=== PATIENT | male | born 1990 | race African-American/Black ===

== ENCOUNTER 2017-11-16 15:49 | Observation (INO) ==
[2017-11-16 16:31] LABS: Apearance,Urine CLEAR (Clear); Bilirubin,Urine Negative (Negative); Blood, Urine Small mg/dL (Negative); Glucose,Urine (UA) >=500 mg/dL (Negative); Ketones,Urine 20 mg/dL (Negative); Nitrite,Urine Negative (Negative); Protein,Urine Negative; Urine Color Straw (Yellow); Urine Urobilinogen < 2.0 EU/DL (0.2-1.0); WBC,Urine <1 /HPF (0-6)
[2017-11-16] MEDS ORDERED: ACETAMINOPHEN 325 MG TABLET PO ONE (16:41)
[2017-11-16] MEDS ORDERED: SODIUM CHLORIDE 0.9% 1,000 ML IV STA (17:00)
[2017-11-16 17:14] LABS: Basophils # 0.1 10*3/uL (0.0-0.2); Basophils % 0.7 % (0.0-0.8); Eosinophils # 0.1 10*3/uL (0.0-0.87); Hematocrit 48.1 VOL% (42.0-52.0); Hemoglobin 16.9 GM/DL (14.0-18.0); Immature Granulocytes % 0.3 %; Immature Granulocytes Absolute 0.03 #; Lymphocytes # 2.9 10*3/uL (1.4-4.0); Lymphocytes % 29.8 % (21.2-54.2); Mean Corpuscular HGB Conc 35.1 GM/DL (32-36); Mean Corpuscular Hemoglobin 28 PG (27-34); Mean Corpuscular Volume 79.6 FL (87-102); Mean Platelet Volume 11.4 FL (9.6-12.0); Monocytes # 0.5 10*3/uL (0.11-0.8); Monocytes % 5.4 % (1.7-12.7); Neutrophils # 6.1 10*3/uL (1.4-7.4); Neutrophils % 62.8 % (38.7-73.9); Platelet Count 261 T/CUMM (130-400); Red Blood Count 6.04 MC/CUMM (3.8-5.5); Red Cell Distribution Width 12.9 % (9.3-17.3); White Blood Count 9.7 T/CUMM (4-12)
[2017-11-16 17:33] LABS: Albumin 4.7 G/DL (3.4-5.0); Bilirubin,Total 0.6 MG/DL (0.2-1.0); Calcium 10.5 MG/DL (8.5-10.1); Osmolality,Calculated 285.7 MOS/KG (273-304); Potassium 3.8 MMOL/L (3.5-5.1)
[2017-11-16 17:35] LABS: ABG Base Excess -1.6 MMOL/L (-2.5-2.5); ABG Oxygen Saturation 95.5 % (95-100); ABG PCO2 35.2 MM HG (35-48); ABG PO2 78.3 MM HG (80-95); ABG TCO2 18.6 MMOL/L (23-27)
[2017-11-16] MEDS ORDERED: INSULIN REGULAR 100 UNIT/ML IV STA (17:37)
[2017-11-16] MEDS ORDERED: INSULIN REGULAR 100 UNIT/ML ONE (17:52)
[2017-11-16] MEDS ORDERED: DEXTROSE 50% 25 GM/50 ML VIAL IV PRN (18:11)
[2017-11-16] MEDS ORDERED: GLUCAGON 1 MG VIAL IM PRN (18:11)
[2017-11-16] MEDS ORDERED: glyBURIDE 5 MG TABLET PO ONE (20:00)
[2017-11-16] MEDS ORDERED: INSULIN GLARGINE 100 UNIT/ML SUBCUT ONE (20:00)
[2017-11-16] MEDS: SODIUM CHLORIDE 0.9% 1,000 ML IV SCH (20:10)
[2017-11-16] MEDS: INSULIN LISPRO 100 UNIT/ML SUBCUT SCH (22:04)
[2017-11-16] MEDS: NYSTATIN CREAM 15 GM TUBE TOP SCH (22:05)
[2017-11-17] MEDS: SODIUM CHLORIDE 0.9% 1,000 ML IV SCH ×2 (04:10→12:57)
[2017-11-17 05:57] LABS: Basophils % 0.6 % (0.0-0.8); Eosinophils # 0.2 10*3/uL (0.0-0.87); Eosinophils % 2.8 % (0.00-10.9); Hematocrit 43.1 VOL% (42.0-52.0); Hemoglobin 15.1 GM/DL (14.0-18.0); Immature Granulocytes % 0.4 %; Immature Granulocytes Absolute 0.03 #; Lymphocytes # 2.8 10*3/uL (1.4-4.0); Lymphocytes % 40.1 % (21.2-54.2); Mean Corpuscular Hemoglobin 28 PG (27-34); Mean Corpuscular Volume 80.7 FL (87-102); Mean Platelet Volume 11.3 FL (9.6-12.0); Monocytes # 0.4 10*3/uL (0.11-0.8); Monocytes % 5.4 % (1.7-12.7); Neutrophils # 3.5 10*3/uL (1.4-7.4); Neutrophils % 50.7 % (38.7-73.9); Platelet Count 235 T/CUMM (130-400); Red Blood Count 5.34 MC/CUMM (3.8-5.5); Red Cell Distribution Width 12.9 % (9.3-17.3); White Blood Count 6.9 T/CUMM (4-12)
[2017-11-17 06:37] LABS: Calcium 8.8 MG/DL (8.5-10.1); Potassium 3.9 MMOL/L (3.5-5.1); Risk Ratio 5.08; Thyroid Stimulating Hormone 1.21 uIU/ml (0.358-3.74)
[2017-11-17] MEDS ORDERED: metFORMIN 500 MG TABLET PO SCH (08:00)
[2017-11-17] MEDS ORDERED: glyBURIDE 5 MG TABLET PO SCH (08:00)
[2017-11-17] MEDS: NYSTATIN CREAM 15 GM TUBE TOP SCH ×2 (08:31→15:16)
[2017-11-17] MEDS ORDERED: FLUCONAZOLE 100 MG TABLET PO SCH (09:00)
[2017-11-17] MEDS: INSULIN LISPRO 100 UNIT/ML SUBCUT SCH ×2 (10:03→12:38)
[2017-11-17 16:53] VITALS: BP 137/85
== END 2017-11-17 17:51 | disposition home or self-care (01) ==
LOC: N.ED 15:49 → N.EDINP 15:49 → N.2E 19:47
PROVIDERS: ADMIT Internal Medicine; ATTEND Internal Medicine